=== PATIENT | male | born 1990 | race Caucasian/White ===

== ENCOUNTER 2021-08-18 10:15 | Emergency (ER) | payer OTHER, SELFPAY ==
--- NOTE | ~2021-08-18 | XR_ITS ---
EXAMINATION: XR ankle RT min 3V INDICATION: Right ankle pain TECHNIQUE: Four views of the right ankle are obtained. COMPARISON: None available FINDINGS: There is medial soft tissue swelling of ankle. Bone alignment is normal. There is no fractu re. IMPRESSION: 1. Ankle soft tissue swelling without acute osseous abnormality. Reviewed, dictated and finalized at location B.
[2021-08-18 10:25] VITALS: BP 128/95; PULSE 68; RESP 18; TEMP 36.2; O2SAT 100
--- NOTE | 2021-08-18 10:59 | ED.LOWEXIN ---
HPI - Extremity Injury (Lower) General Chief Complaint: Extremity Injury, Lower Stated Complaint: Rt lower leg pain Time Seen by Provider: 08/18/21 10:40 Source: patient and RN notes reviewed Mode of arrival: ambulatory Limitations: no limitations History of Present Illness HPI Narrative: 31-year-old male presents with concern for right ankle pain and swelling, decreased strength after an injury while playing rugby on Saturday night. He reports he felt a pop and a painful sensation in the back of his ankle he reports decreased strength and range of motion ankle. He reports swelling. He denies intervention. Reports little pain at rest, pain increases with range of motion. complaint: ankle injury Related Data Home Medications Medication Instructions Recorded Confirmed alprazolam 0.5 mg PO HS PRN 08/18/21 08/18/21 Allergies Allergy/AdvReac Type Severity Reaction Status Date / Time No Known Drug Allergies Allergy Unknown Other Verified 08/18/21 10:32 Review of Systems Review of Systems: CONSTITUTIONAL: Denies malaise, chills, sweats, or fever. SKIN: Denies rash or itching, open skin, laceration, abrasion, redness, warmth MUSCULOSKELETAL: Reports right ankle pain and swelling, decreased strength and range of motion NEUROLOGIC: Denies numbness, weakness All systems reviewed & are unremarkable except as noted in HPI and below PMFSH Comments At time of signature, agree with nursing past medical, surgical, social and family history. There is no relevant family history pertinent to the presenting complaint Exam Narrative: GENERAL: Well-appearing, well-nourished, and in no acute distress. HEAD: Normocephalic, atraumatic. EYES: PERRLA, conjunctivae clear NECK: Supple. CHEST: Speaks in full sentences. No respiratory distress. HEART: Regular rate and rhythm. Normal and equal peripheral pulses. EXTREMITIES: Right ankle and digits have normal sensation, right ankle has limited range of motion with dorsiflexion. Moderate circumferential ankle edema, noecchymosis. 5/5 strength with ankle extension, 2/5 strength with right ankle dorsiflexion. Normal sensation with sensitivity to light touch and pain. Posterior ankle tenderness. No open wounds, no skin tenting, no devitalized tissue or atrophy, no trophic changes, no obvious deformity, alignment normal, nearby joints and structures intact. Distal pulses palpable and equal bilaterally, skin warm, dry, pink. Capillary refill less than 3 seconds. SKIN: Warm, dry, no rash. NEURO: Alert and oriented x3. PSYCH: Normal mood and affect Course Course Emergency Course: Patient is aware of diagnosis, understands and agrees to treatment plan. Anticipatory guidance given. Patient agrees to follow-up as directed and is aware of reasons to seek care at the emergency department. Portions of this record may have been created with voice recognition software Level of Care: Express Care Visit Vital Signs Vital signs: Vital Signs Temperature 97.1 F L 08/18/21 10:25 Pulse Rate 68 08/18/21 10:25 Respiratory Rate 18 08/18/21 10:25 Blood Pressure 128/95 H 08/18/21 10:25 Pulse Oximetry 100 08/18/21 10:25 Temperature 97.1 F L 08/18/21 10:25 Pulse Rate 68 08/18/21 10:25 Respiratory Rate 18 08/18/21 10:25 Blood Pressure 128/95 H 08/18/21 10:25 Pulse Oximetry 100 08/18/21 10:25 Reviewed. MDM - Extremity Injury (Lower) MDM Narrative Medical decision making narrative: Patients injury and pain is consistent with musculoskeletal etiology. No signs of neurological or vascular compromise on exam. Compartments and tissues are soft without signs of compartment syndrome. Pain is felt appropriate for further evaluation on an outpatient basis. Critical Care Time Critical Care Time Critical Care Time: No Discharge Plan Discharge Clinical Impression: Achilles tendon injury Qualifiers: Encounter type: initial encounter Laterality: right Qualified Code(s): S86.001A - Unspeci
== END 2021-08-18 11:20 | disposition home or self-care (01) ==
PROVIDERS: Emergency Provider Nurse Practitioner; PCP Family Medicine
DX: S89.91XA Unspecified injury of right lower leg, initial encounter (principal); X58.XXXA Exposure to other specified factors, initial encounter; Y93.63 Activity, rugby; F41.9 Anxiety disorder, unspecified
CPT/HCPCS: 73610; 99213; G0463

== ENCOUNTER → 2021-08-31 11:15 | Outpatient (CLI) | payer OTHER, SELFPAY ==
--- NOTE | ~2021-08-31 | MR_ITS ---
EXAMINATION: MR ankle RT wo con DATE: 08/31/2021 11:49 INDICATION: Achilles tendon sprain TECHNIQUE: Magnetic resonance imaging (MRI) of the right ankle was performed without intravenous cont rast. Sequences included sagittal, coronal, and axial proton-density weighted fast spin echo without and with fat saturation. COMPARISON: None. FINDINGS: Medial ankle ligaments: Deep and superficial deltoid ligaments as well as the spring ligament are normal. Lateral ankle ligaments: The anterior and posterior inferior tibiofibular ligaments are normal. The anterior talofibular, calc aneofibular and posterior talofibular ligaments are normal. Tendons: There is severe tendinosis of the distal Achilles tendon with full-thickness tear located approximate ly 6 cm above level of the calcaneal insertion. There is approximately 2 cm proximal retraction of th e proximal tear margin with small fluid collection filling the tear defect. There is also a full thic kness tear of the soleus tendon at the same location and with similar degree of proximal retraction. Mild fusiform thickening of the peroneus longus tendon centered at the level of the tip the lateral m alleolus consistent with mild tendinopathy. Small linear region of increased intrasubstance signal wi thin the peroneus longus tendon just distal to the tip of the lateral malleolus which could represent either a mild partial tear or longitudinal split tear. The tibialis anterior and extensor hallucis l ongus and extensor digitorum longus tendons are normal. The tibialis posterior, flexor digitorum long us and flexor hallucis longus tendons are normal. Plantar fascia: Plantar aponeurosis is normal. Bones/other: Bone alignment is normal. There are couple low signal intensity bone islands at the talus and distal tibia. Normal bone marrow signal throughout with no fracture activity more pathologic marrow replacin g process. Joint spaces are normal. Fluid: Physiologic amount fluid in the joint spaces. Subcutaneous edema at the posterior aspect of the dista l calf. IMPRESSION: 1. Severe Achilles tendinosis with full-thickness tear and 2 cm proximal retraction. This includes a full-thickness tear of the adjacent soleus tendon at the same level and with similar retraction. 2. Mild peroneus longus tendinopathy with intrasubstance either mild partial-thickness tear or longit udinal split tear. Reviewed, dictated and finalized at location B. IMPRESSION: 1. Severe Achilles tendinosis with full-thickness tear and 2 cm proximal retrac tion. This includes a full-thickness tear of the adjacent soleus tendon at the same level and with similar retraction. 2. Mild peroneus longus tendinopathy with intrasubstance either mild partial-th ickness tear or longitudinal split tear.
== END ==
PROVIDERS: PCP Family Medicine; Visit Provider Orthopaedic Surgery
DX: S86.011A Strain of right Achilles tendon, initial encounter (principal); X58.XXXA Exposure to other specified factors, initial encounter; M76.61 Achilles tendinitis, right leg
CPT/HCPCS: 73721

== ENCOUNTER 2022-04-27 11:40 | Emergency (ER) | payer OTHER, SELFPAY ==
[2022-04-27 11:57] VITALS: BP 133/85; PULSE 79; RESP 16; TEMP 36.6; O2SAT 98
--- NOTE | 2022-04-27 12:19 | ED.URI ---
HPI - URI/Sore Throat General Chief Complaint: Upper Respiratory Infection Stated Complaint: Headache,Lower Back Pain,Congestion Time Seen by Provider: 04/27/22 12:13 Source: patient Mode of arrival: ambulatory Limitations: no limitations History of Present Illness HPI Narrative: Patient presents today complaining of 5 day history of cough, sore throat, headache, congestion, subjective fever, sneezing, and body aches. Denies shortness of breath. He currently rates his pain 6/10 and has been taking DayQuil, NyQuil, and Tylenol with mild relief. He did not receive a flu vaccine this season. Related Data Home Medications Medication Instructions Recorded Confirmed lorazepam 0.5 mg tablet 0.5 mg PO PRN PRN Anxiety 04/27/22 04/27/22 viloxazine 200 mg capsule,extended 400 mg PO DAILY 04/27/22 04/27/22 release 24 hr ([facility]) Allergies Allergy/AdvReac Type Severity Reaction Status Date / Time No Known Drug Allergies Allergy Unknown Other Verified 04/27/22 11:51 Review of Systems Review of Systems: CONSTITUTIONAL: Denies chills, or sweats.+ Body aches, subjective fever EYES: Denies visual changes, redness, or discharge. ENT: Denies rhinorrhea, or otalgia.+ congestion, sore throat CARDIOVASCULAR: Denies chest pain, palpitations, or edema. RESPIRATORY: Denies dyspnea.+ cough GASTROINTESTINAL: Denies abdominal pain, nausea, vomiting, or diarrhea. GENITOURINARY: Denies dysuria or hematuria. SKIN: Denies rash, itching, or wounds. MUSCULOSKELETAL: Denies back pain, joint pain, or myalgia. NEUROLOGIC: Denies numbness, tingling, or weakness.+ headache PSYCH: Denies depression or anxiety. 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 Please see nursing chart for further information. There is no relevant family history pertinent to the presenting complaint Exam Narrative: GENERAL: Well-appearing, well-nourished, and in no acute distress. HEAD: Normocephalic, atraumatic. EYES: EOMI. No redness or drainage. Conjunctivae normal. ENT: Mucous membranes pink and moist. Nares mildly congested. No rhinorrhea. TMs normal bilaterally. Throat normal. Uvula midline. NECK: Normal AROM. Supple. No lymphadenopathy. CHEST: No respiratory distress. Clear to auscultation. HEART: Regular rate and rhythm. No murmur appreciated. Normal peripheral pulses. EXTREMITIES: Normal range of motion. No edema. SKIN: Warm, dry, no rash. Capillary refill normal. Normal skin turgor. NEURO: No focal deficits. Alert and oriented x3. Gait steady. PSYCH: Normal affect. No signs of depression or anxiety. Course Course Level of Care: Express Care Visit Vital Signs Vital signs: Vital Signs Temperature 97.8 F 04/27/22 11:57 Pulse Rate 79 04/27/22 11:57 Respiratory Rate 16 04/27/22 11:57 Blood Pressure 133/85 04/27/22 11:57 Pulse Oximetry 98 04/27/22 11:57 Oxygen Delivery Room Air 04/27/22 11:57 Temperature 97.8 F 04/27/22 11:57 Pulse Rate 79 04/27/22 11:57 Respiratory Rate 16 04/27/22 11:57 Blood Pressure 133/85 04/27/22 11:57 Pulse Oximetry 98 04/27/22 11:57 Oxygen Delivery Room Air 04/27/22 11:57 Reviewed. Pt has been instructed to follow up with his PCP regarding his elevated blood pressure today. [facility] -
== END 2022-04-27 12:25 | disposition home or self-care (01) ==
PROVIDERS: Emergency Provider Nurse Practitioner; PCP Family Medicine
DX: J10.1 Influenza due to other identified influenza virus with other respiratory manifestations (principal)
CPT/HCPCS: 87804; 99213; G0463

== ENCOUNTER 2022-09-06 14:12 | Emergency (ER) | payer OTHER, SELFPAY ==
[2022-09-06 14:15] VITALS: BP 118/75; PULSE 82; RESP 18; TEMP 36.9; O2SAT 18
--- NOTE | 2022-09-06 14:35 | ED.URI ---
HPI - URI/Sore Throat General Chief Complaint: Upper Respiratory Infection Stated Complaint: Sore Throat,Bilateral Ear Irritation Time Seen by Provider: 09/06/22 14:35 Source: patient Mode of arrival: ambulatory Limitations: no limitations History of Present Illness HPI Narrative: 32-year-old male presents with complaint of sore throat, fatigue for 3 days. Afebrile. No other symptoms. Denies nausea vomiting diarrhea. All systems reviewed and negative except as noted above. Related Data Home Medications Medication Instructions Recorded Confirmed methylphenidate HCl 36 mg 36 mg PO DAILY 09/06/22 09/06/22 tablet,extended release 24 hr Allergies Allergy/AdvReac Type Severity Reaction Status Date / Time No Known Drug Allergies Allergy Unknown Other Verified 09/06/22 14:27 Review of Systems Review of Systems: CONSTITUTIONAL: Denies fever, chills, or sweats. reports fatigue. EYES: Denies visual changes, redness, or discharge. ENT: Denies rhinorrhea, congestion . Report sore throat. Denies otalgia. CARDIOVASCULAR: Denies chest pain, palpitations, or edema. RESPIRATORY: Denies cough or dyspnea. GASTROINTESTINAL: Denies abdominal pain, nausea, vomiting, or diarrhea. GENITOURINARY: Denies dysuria or hematuria. SKIN: Denies rash or itching. MUSCULOSKELETAL: Denies back pain, joint pain, or myalgia. NEUROLOGIC: Denies headache, numbness, or weakness. PSYCHIATRIC: Denies anxiety or depression. All other systems reviewed are negative, except as documented in HPI. 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 There is no relevant family history pertinent to the presenting complaint. Exam Narrative: GENERAL: This is a well-nourished, well-developed patient, in no apparent distress. HEAD: normocephalic, atraumatic. EYES: PERRL. Sclera clear/white. Vision is grossly intact. EARS: External ears normal, auditory canals clear and without drainage, TMs normal without perforation. Hearing grossly intact. NOSE: External nose normal with no obvious nasal discharge, nares without redness, no rhinorrhea. THROAT: Mucous membranes moist, Erythema and swelling to posterior pharynx. No exudates. NECK: Neck supple, non-tender without lymphadenopathy, masses or thyromegaly. CARDIOVASCULAR: Regular rate and rhythm without murmurs, gallops, or rubs. RESPIRATORY: Clear to auscultation. Breath sounds equal bilaterally. No wheezes, rales, or rhonchi. SKIN: warm, Dry, intact with no suspicious lesions or rash, good texture and turgor. NEURO: awake, alert, and oriented to person, place and time. There were no obvious focal neurologic abnormalities. EXTREMITIES: No joint tenderness, effusion, or edema noted. Course Course Level of Care: Express Care Visit Vital Signs Vital signs: Reviewed MDM - URI/Sore Throat MDM Narrative Medical decision making narrative: Patient is aware of diagnosis, understands and agrees to treatment plan. Anticipatory guidance given. Patient agrees to follow-up as directed and is aware of reasons to seek care at the emergency department. Portions of this record may have been created with voice recognition software Differential Diagnosis Differential diagnosis: Likely pharyngitis Lab Data Labs: Strep Screen
== END 2022-09-06 14:45 | disposition home or self-care (01) ==
PROVIDERS: Emergency Provider Nurse Practitioner Family; PCP Family Medicine
DX: J02.0 Streptococcal pharyngitis (principal)
CPT/HCPCS: 87880; 99213; G0463

== ENCOUNTER 2024-05-22 13:11 | Emergency (ER) | payer OTHER, SELFPAY ==
[2024-05-22 13:32] VITALS: BP 124/80; PULSE 66; RESP 16; TEMP 36.3; O2SAT 100
--- NOTE | 2024-05-22 14:07 | ED_ITS ---
HPI - General Adult General Chief complaint: Headache Stated complaint: Headaches / Migraines-note for work Time Seen by Provider: 05/22/24 14:07 Source: patient, RN notes reviewed and old records reviewed Mode of arrival: ambulatory Limitations: no limitations History of Present Illness HPI narrative: 34-year-old male presents to the [facility] requesting a work note due to intermittent headache or migraines. Has taken Tylenol and pain has improved. No neuro deficits, denies any pain currently Related Data Home Medications ?Medication ?Instructions ?Recorded ?Confirmed ?Last Taken ?Type methylphenidate HCl 36 mg 36 mg PO DAILY 09/06/22 09/06/22 Unknown History tablet,extended release 24 hr Allergies Allergy/AdvReac Type Severity Reaction Status Date / Time No Known Drug Allergies Allergy Unknown Other Verified 05/22/24 14:12 Review of Systems Review of Systems: All systems reviewed & are unremarkable except as noted in HPI and below Constitutional: Constitutional: Reports as per HPI and Reports headache(s) ENT: Reports system reviewed and no additional complaints, except as documented Cardiovascular: Cardiovascular: Reports no additional cardiovascular complaints, Denies chest pain and Denies dyspnea Respiratory: Respiratory: Reports no additional respiratory complaints, Denies chest congestion, Denies cough and Denies dyspnea Musculoskeletal: Musculoskeletal: Reports no additional musculoskeletal complaints Integumentary/Breasts: Skin/Breast: Reports system reviewed and no additional complaints, except as docu PMFSH Past Medical History Medical History Achilles rupture, right Anxiety Family History Family History Other Depression Social History Social History Smoking status: Never smoker Alcohol intake: current Substance use: never Substance use type: does not use Occupation/Education: occupation 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 There is no relevant family history pertinent to the patient complaint. Exam Const: General: cooperative, healthy appearing, comfortable, no acute distress, well developed, alert and well nourished Nutritional Appearance: well nourished Orientation/consciousness: patient oriented x3 Limitations: no limitations HENMT: Head: normal to inspection Face and sinus: normal facial exam and face symmetric Eyes: General: appearance normal, both eyes and all related structures Neck: Neck: normal visual inspection, full ROM, no lymphadenopathy and no meningeal signs Chest: Chest palpation & inspection: normal inspection of the chest Resp: Effort & Inspection: normal respiratory effort and able to speak in complete sentences Cardio: Rate: regular rate Skin: General skin exam: normal color and no rashes or lesions noted Neuro: General: patient oriented x3, gait normal, moves all extremities and no meningeal signs Cognition (Neuro): normal cognition Speech: normal speech Gait exam (Neuro): Normal gait present Extrem: General: normal to inspection, full ROM, capillary refill normal and normal gait Psych: Appearance: grossly normal and well kempt Mental Status: mental status grossly normal Speech and movement: Normal speech and movement present and Clear speech present Affect: normal affect Attitude: cooperative Course Course Level of Care: Express Care Visit Vital Signs Vital signs: Vital Signs Temperature 97.4 F L 05/22/24 13:32 Pulse Rate 66 05/22/24 13:32 Respiratory Rate 16 05/22/24 13:32 Blood Pressure 124/80 05/22/24 13:32 Pulse Oximetry 100 05/22/24 13:32 Oxygen Delivery Room Air 05/22/24 13:32 Temperature 97.4 F L 05/22/24 13:32 Pulse Rate 66 05/22/24 13:32 Respiratory Rate 16 05/22/24 13:32 Blood Pressure 124/80 05/22/24 13:32 Pulse Oximetry 100 05/22/24 13:32 Oxygen Delivery Room Air 05/22/24 13:32 Reviewed Medical Decision Making MDM Narrative Medical decision making narrative: Patient sitting comfortably in exam room. Nontoxic, vitals stable. Patient in no acute distress Patient presents for intermittent headaches, requesting a work note. Patient in no acute distress Patient is appropriate for outpatient treatment and follow-up Discharge instructions reviewed with patient, as well as provided in writing per nursing staff. The instructions also include specific and strict return/GO TO THE ER as well as f/u information. All questions have been answered, and the patient deny any further questions with discharge and discharge plan. Some parts of this dictation were generated by voice recognition software and may contain typographical and/or grammatical inaccuracies. Differential Diagnosis Differential Diagnosis: Headaches migraines Medical Records Medical records reviewed: Yes I reviewed the external patient's medical records. Vital Signs Vital Signs: Vital Signs Temperature 97.4 F L 05/22/24 13:32 Pulse Rate 66 05/22/24 13:32 Respiratory Rate 16 05/22/24 13:32 Blood Pressure 124/80 05/22/24 13:32 Pulse Oximetry 100 05/22/24 13:32 Oxygen Delivery Room Air 05/22/24 13:32 Temperature 97.4 F L 05/22/24 13:32 Pulse Rate 66 05/22/24 13:32 Respiratory Rate 16 05/22/24 13:32 Blood Pressure 124/80 05/22/24 13:32 Pulse Oximetry 100 05/22/24 13:32 Oxygen Delivery Room Air 05/22/24 13:32 Reviewed Lab Data Lab results reviewed: Yes I reviewed the patient's lab results. Labs: Reviewed Critical Care Time Critical Care Time Critical Care Time: No Discharge Plan Discharge Clinical Impression: Headache Qualifiers: Headache type: unspecified Headache chronicity pattern: acute headache Patient Disposition: Home, Self-Care Condition: Stable Instructions: Antibiotic Form, Acute Headache (DC) Patient Language: Uruguayan Prescriptions: No Action methylphenidate HCl 36 mg tablet extended release 24hr 36 mg PO DAILY Follow-up/Referrals: Roger,MD Jose Francisco [Primary Care Provider] - 2 Weeks ([facility] follow-up) Stand Alone Forms: Work/School Release IP Time of Disposition: 14:12
== END 2024-05-22 14:16 | disposition home or self-care (01) ==
PROVIDERS: Emergency Provider Nurse Practitioner; PCP Family Medicine
DX: R51.9 Headache, unspecified (principal)
CPT/HCPCS: 99213; G0463